=== PATIENT | female | born 1960 | race Caucasian/White ===

== ENCOUNTER 2023-04-30 12:38 | Emergency (ER) | payer OTHER, SELFPAY ==
[2023-04-30] VITALS (51 sets, daily range): BP systolic 84–125; BP diastolic 55–99; PULSE 59–89; RESP 18–20; TEMP 36.3–39.6; O2SAT 88–99
--- NOTE | 2023-04-30 15:08 | ED_ITS ---
HPI - General Adult General Chief complaint: Fever Stated complaint: Fever, nausea, diarrhea Time Seen by Provider: 04/30/23 14:49 History of Present Illness HPI narrative: intermittent fevers for the past 7 days. Temp was as high as 104.2 at times. Poor appetite. Nausea and vomiting. Patient is fatigued and feels dehydrated. Son 's family was sick 2 weeks ago with this. Spoke to telehealth doctor and was told she had a virus. At home COVID tests negative x2. Was seen at in [facility] and was told to come here for possible hydration. 63-year-old woman presenting to the emergency department with concern of fever not infrequently up to 104 intermittent over the last week. Has not been keeping up with fluids per . She has been dry heaving more than vomiting she says. She does not have any abdominal pain. Increasingly generally sore and tired. Son and his family were sick recently and he was seen received antibiotic and got better apparently in a couple of days. Diagnosis is unclear. She has done some home COVID test which were negative. Directed here for IV hydration. Over the last 2 days has had maybe 3 episodes of diarrhea a day. No particular exposures other than son as mentioned above. No environmental factors apparent. No concerning food ingestions. No dysuria frequency urgency. No cough or cold symptoms otherwise. Notes that the nausea build when the temperature goes up. I notice blood pressure on arrival is somewhat low. They note that she is a chronically low but this is maybe a little lower than usual. And then emphasize how she has not been eating lately. Travel in December to [facility] I believe. Later questioning, fevers been occurring regularly in the evenings. Though still also be present in the morning. She also recalls testing positive for hepatitis-C she thinks when screening for kidney donation. Status post nephrectomy has been clearly told to avoid ibuprofen type medications. Related Data Home Medications Medication Instructions Recorded Confirmed atorvastatin 20 mg tablet 20 mg PO QPM 04/30/23 04/30/23 Allergies Allergy/AdvReac Type Severity Reaction Status Date / Time No Known Drug Allergies Allergy Verified 04/30/23 12:03 Review of Systems Status of ROS: Reports: 6 or more systems reviewed and unremarkable except as noted in History and below Exam Narrative: Exam Narrative: Pleasant. NAD. Fully alert. Seems a little fatigued. Breathing easily. Skin is warm and dry. Extremities are well perfused lower extremities are without edema. Lungs are clear. Heart in a regular rate and rhythm without murmur rub or gallop. Abdomen is full soft nontender. Normoactive bowel sounds. No masses are appreciated. Oropharynx is sticky and without erythema. There is no cervical lymphadenopathy. Const: Vital Signs, click to edit/add: Vital Signs - 24 hr 04/30/23 12:46 04/30/23 14:56 04/30/23 14:57 Temperature 97.4 F L Pulse Rate 61 60 Pulse Rate [Pulse Oximeter] 65 Respiratory Rate 18 Blood Pressure 101/68 Blood Pressure [Ri ght Upper Arm] 84/58 L Pulse Oximetry 97 98 98 Oxygen Delivery Me thod Room Air 04/30/23 15:00 04/30/23 15:01 04/30/23 15:15 Temperature Pulse Rate 59 L 59 L 62 Pulse Rate [Pulse Oximeter] Respiratory Rate Blood Pressure 99/59 L Blood Pressure [Ri ght Upper Arm] Pulse Oximetry 97 96 99 Oxygen Delivery Me thod 04/30/23 15:30 04/30/23 15:31 04/30/23 15:45 Temperature Pulse Rate 61 60 65 Pulse Rate [Pulse Oximeter] Respiratory Rate Blood Pressure 108/80 Blood Pressure [Ri ght Upper Arm] Pulse Oximetry 97 96 95 Oxygen Delivery Me thod 04/30/23 16:02 04/30/23 16:07 04/30/23 16:15 Temperature Pulse Rate 63 63 Pulse Rate [Pulse Oximeter] Respiratory Rate Blood Pressure 103/65 Blood Pressure [Ri ght Upper Arm] Pulse Oximetry 97 94 Oxygen Delivery Me thod 04/30/23 16:30 04/30/23 16:32 04/30/23 16:33 Temperature Pulse Rate 67 68 67 Pulse Rate [Pulse Oximeter] Respiratory Rate Blood Pressure 119/61 Blood Pressure [Ri ght Upper Arm] Pulse Oximetry 97 92 96 Oxygen Delivery Me thod 04/30/23 16:43 04/30/23 16:45 04/30/23 17:01 Temperature 99.2 F 100.6 F H Pulse Rate 70 Pulse Rate [Pulse Oximeter] Respiratory Rate Blood Pressure 119/99 H Blood Pressure [Ri ght Upper Arm] Pulse Oximetry 97 Oxygen Delivery Me thod 04/30/23 17:21 04/30/23 17:30 04/30/23 17:32 Temperature Pulse Rate 73 73 70 Pulse Rate [Pulse Oximeter] Respiratory Rate Blood Pressure 125/95 H Blood Pressure [Ri ght Upper Arm] Pulse Oximetry 95 96 97 Oxygen Delivery Me thod 04/30/23 17:45 04/30/23 18:00 04/30/23 18:02 Temperature Pulse Rate 73 78 77 Pulse Rate [Pulse Oximeter] Respiratory Rate Blood Pressure 118/58 L Blood Pressure [Ri ght Upper Arm] Pulse Oximetry 95 96 96 Oxygen Delivery Me thod 04/30/23 18:15 04/30/23 18:30 04/30/23 18:32 Temperature 101.7 F H Pulse Rate 79 78 75 Pulse Rate [Pulse Oximeter] Respiratory Rate Blood Pressure 100/71 Blood Pressure [Ri ght Upper Arm] Pulse Oximetry 97 95 96 Oxygen Delivery Me thod 04/30/23 18:45 04/30/23 19:00 04/30/23 19:01 Temperature 102.6 F H Pulse Rate 83 78 82 Pulse Rate [Pulse Oximeter] Respiratory Rate Blood Pressure 111/58 L Blood Pressure [Ri ght Upper Arm] Pulse Oximetry 91 96 96 Oxygen Delivery Me thod 04/30/23 19:15 04/30/23 19:30 04/30/23 19:31 Temperature 103.2 F H Pulse Rate 89 86 86 Pulse Rate [Pulse Oximeter] Respiratory Rate Blood Pressure 103/57 L Blood Pressure [Ri ght Upper Arm] Pulse Oximetry 95 94 94 Oxygen Delivery Me thod 04/30/23 19:45 04/30/23 19:46 04/30/23 20:00 Temperature 103.2 F H Pulse Rate 83 82 Pulse Rate [Pulse Oximeter] Respiratory Rate Blood Pressure Blood Pressure [Ri ght Upper Arm] Pulse Oximetry 94 92 Oxygen Delivery Me thod 04/30/23 20:01 04/30/23 20:15 04/30/23 20:31 Temperature 100.8 F H Pulse Rate 81 77 87 Pulse Rate [Pulse Oximeter] Respiratory Rate Blood Pressure 102/58 L Blood Pressure [Ri ght Upper Arm] Pulse Oximetry 94 94 95 Oxygen Delivery Me thod 04/30/23 20:33 04/30/23 20:45 04/30/23 21:00 Temperature Pulse Rate 77 70 68 Pulse Rate [Pulse Oximeter] Respiratory Rate Blood Pressure 100/55 L Blood Pressure [Ri ght Upper Arm] Pulse Oximetry 92 92 94 Oxygen Delivery Me thod 04/30/23 21:01 04/30/23 21:15 04/30/23 21:30 Temperature Pulse Rate 69 67 68 Pulse Rate [Pulse Oximeter] Respiratory Rate Blood Pressure 97/55 L Blood Pressure [Ri ght Upper Arm] Pulse Oximetry 91 92 88 Oxygen Delivery Me thod 04/30/23 21:32 04/30/23 21:45 04/30/23 22:00 Temperature Pulse Rate 65 64 64 Pulse Rate [Pulse Oximeter] Respiratory Rate Blood Pressure 96/55 L Blood Pressure [Ri ght Upper Arm] Pulse Oximetry 88 90 93 Oxygen Delivery Me thod 04/30/23 22:01 04/30/23 22:15 04/30/23 22:27 Temperature Pulse Rate 64 63 Pulse Rate [Pulse Oximeter] 71 Respiratory Rate 20 Blood Pressure 95/60 Blood Pressure [Ri ght Upper Arm] 95/60 Pulse Oximetry 92 94 Oxygen Delivery Me thod Documenting provider has reviewed patient's vital signs: yes Course Vital Signs Vital signs: Initial Vital Signs Temperature 97.4 F L 04/30/23 12:46 Temperature Source Temporal Artery Scan 04/30/23 12:46 Pulse Rate 65 04/30/23 12:46 Pulse Rhythm Regular 04/30/23 12:46 Respiratory Rate 18 04/30/23 12:46 Blood Pressure 84/58 L 04/30/23 12:46 Blood Pressure Mean 66 L 04/30/23 12:46 Blood Pressure Position Sitting 04/30/23 12:46 Pulse Oximetry 97 04/30/23 12:46 Oxygen Delivery Method Room Air 04/30/23 12:46 Vital Signs Temperature 97.4 F L 04/30/23 12:46 Pulse Rate 65 04/30/23 12:46 Respiratory Rate 18 04/30/23 12:46 Blood Pressure 84/58 L 04/30/23 12:46 Pulse Oximetry 97 04/30/23 12:46 Oxygen Delivery Method Room Air 04/30/23 12:46 Temperature 100.8 F H 04/30/23 20:15 Pulse Rate 71 04/30/23 22:27 Respiratory Rate 20 04/30/23 22:27 Blood Pressure 95/60 04/30/23 22:27 Pulse Oximetry 94 04/30/23 22:15 Oxygen Delivery Method Room Air 04/30/23 12:46 Medical Decision Making MDM Narrative Medical decision making narrative: Presumably is dehydrated with likely viral process unspecified. Gallbladder disease or hepatitis? Will recheck for COVID and similar. Will hydrate with IV fluids. Check labs. Also give Zofran. Hopefully feels improved. Labs may guide other evaluation. Low blood pressure would have concerns about sepsis but this does not sound to be particularly unusual. Does not appear to be septic during my exam today. I am impressed with this week-long daily persistent rather high 24 hour fever. Transaminases are notably elevated. CRP as well. Sodium of 130. White count a little bit low. Temperature actually began to increase again during time in the ER. Received acetaminophen. Given reported history I think it would be prudent to check hepatitides. Unclear exposures though will also look for tick-borne illnesses. Peripheral smear for parasitic infection like malaria. did anticipate antibiotic but I am not sure at what this would be directed at this point. Ultimately was able to sleep during time in the ER. Finally did give a urine sample which did show the presence of ketones. Hydrated during stay. Lab Data Lab results reviewed: Yes I reviewed the patient's lab results Labs: Lab Results 04/30/23 04/30/23 04/30/23 Range/Units 14:50 15:40 18:23 WBC 4.39 L (4.50-11.00) K/uL RBC 4.74 (4.00-5.20) m/uL Hgb 13.4 (12.0-16.0) gm/dL Hct 40.7 (33.0-51.0) % MCV 86 (80-100) fL MCH 28 (26-34) pg MCHC 33 (32-36) gm/dL RDW Coeff of Ngoc 13.0 (11.5-15.5) % Plt Count 171 (140-440) K/uL Neut % (Auto) 73.4 H (42.0-72.0) % Lymph % (Auto) 22.6 (20-44) % Evans % (Auto) 3.0 (0.0-11.0) % Eos % (Auto) 0.5 (0.0-7.0) % Baso % (Auto) 0.0 (0.0-3.0) % Neut # (Auto) 3.20 (1.7-7.0) K/uL Lymph # (Auto) 1.00 (0.90-2.90) K/uL Evans # (Auto) 0.10 (0.00-0.90) K/UL Eos # (Auto) 0.00 (0.00-0.50) K/uL Baso # (Auto) 0.00 (0.00-0.30) K/uL Abs Immat Gran (auto) 0.00 (0.00-0.30) K/uL Imm/Tot Granulo (auto) 0.5 % Diff Slide Review Acceptable Review (Acceptable) Sodium 130 L (135-149) mmol/L Potassium 4.1 (3.6-5.1) mmol/L Chloride 97 (96-114) mmol/L Carbon Dioxide 24 (20-32) mmol/L BUN 24 (7-30) mg/dL Creatinine 1.3 (0.5-1.5) mg/dL Estimated GFR 46 ml/min Glucose 117 H (60-115) mg/dL Lactate 1.6 (0.5-1.9) mmol/L Calcium 8.2 L (8.4-10.6) mg/dL Total Bilirubin 0.5 (0.1-1.5) mg/dL Direct Bilirubin 0.2 (0.0-0.5) mg/dL AST 424 H (12-35) U/L ALT 406 H (4-35) U/L Alkaline Phosphatase 161 H (40-150) U/L C-Reactive Protein 16.3 H (0.5-1.0) mg/dL Total Protein 7.5 (6.0-8.3) g/dL Albumin 4.0 (3.3-5.0) g/dL Urine Color (Yellow) Urine Appearance (Clear) Urine pH (5.0-8.5) Ur Specific [place] (1.000-1.030) Urine Protein (Negative) Urine Glucose (UA) (Negative) Urine Ketones (Negative) Urine Blood (Negative) Urine Nitrite (Negative) Urine Bilirubin (Negative) Urine Urobilinogen (0.2-1.0) Ur Leukocyte Esterase (Negative) Urine RBC (0-2) Urine WBC (0-5) Ur Squamous Epith Cells (None-Few) Urine Bacteria (None) SARS-CoV-2 (PCR) Negative SARS-CoV-2 (Negative) Influenza Type A (PCR) Negative PCR FLU A (Negative) Influenza Type B (PCR) Negative PCR FLU B (Negative) RSV (PCR) Negative PCR RSV (Negative) Lab Acknowledgement Test Added 04/30/23 04/30/23 Range/Units 20:30 21:40 WBC (4.50-11.00) K/uL RBC (4.00-5.20) m/uL Hgb (12.0-16.0) gm/dL Hct (33.0-51.0) % MCV (80-100) fL MCH (26-34) pg MCHC (32-36) gm/dL RDW Coeff of Ngoc (11.5-15.5) % Plt Count (140-440) K/uL Neut % (Auto) (42.0-72.0) % Lymph % (Auto) (20-44) % Evans % (Auto) (0.0-11.0) % Eos % (Auto) (0.0-7.0) % Baso % (Auto) (0.0-3.0) % Neut # (Auto) (1.7-7.0) K/uL Lymph # (Auto) (0.90-2.90) K/uL Evans # (Auto) (0.00-0.90) K/UL Eos # (Auto) (0.00-0.50) K/uL Baso # (Auto) (0.00-0.30) K/uL Abs Immat Gran (auto) (0.00-0.30) K/uL Imm/Tot Granulo (auto) % Diff Slide Review (Acceptable) Sodium (135-149) mmol/L Potassium (3.6-5.1) mmol/L Chloride (96-114) mmol/L Carbon Dioxide (20-32) mmol/L BUN (7-30) mg/dL Creatinine (0.5-1.5) mg/dL Estimated GFR ml/min Glucose (60-115) mg/dL Lactate (0.5-1.9) mmol/L Calcium (8.4-10.6) mg/dL Total Bilirubin (0.1-1.5) mg/dL Direct Bilirubin (0.0-0.5) mg/dL AST (12-35) U/L ALT (4-35) U/L Alkaline Phosphatase (40-150) U/L C-Reactive Protein (0.5-1.0) mg/dL Total Protein (6.0-8.3) g/dL Albumin (3.3-5.0) g/dL Urine Color Yellow (Yellow) Urine Appearance Clear (Clear) Urine pH 5.5 (5.0-8.5) Ur Specific [place] 1.020 (1.000-1.030) Urine Protein 2+ A (Negative) Urine Glucose (UA) Negative (Negative) Urine Ketones 2+ A (Negative) Urine Blood Negative (Negative) Urine Nitrite Negative (Negative) Urine Bilirubin Negative (Negative) Urine Urobilinogen 0.2 (0.2-1.0) Ur Leukocyte Esterase Negative (Negative) Urine RBC 0-2 (0-2) Urine WBC 0-2 (0-5) Ur Squamous Epith Cells Few (None-Few) Urine Bacteria None (None) SARS-CoV-2 (PCR) (Negative) Influenza Type A (PCR) (Negative) Influenza Type B (PCR) (Negative) RSV (PCR) (Negative) Lab Acknowledgement Test Added ECG Data Attestation: I personally reviewed and interpreted this ECG as follows: (Normal sinus rhythm rate of 60) Discharge Plan Discharge Clinical Impression: Fever of unknown origin, Hyponatremia, Dehydration Patient Disposition: Home w/ Parent or Adult Condition: Improved Additional Instructions: Continue to focus on hydration. Blood cultures, viral liver panels, and tick-borne illness labs are pending here. Please call tomorrow to schedule follow-up with primary care provider to review these labs which I think would be ready in 2 days or so. I would like you to be seen later this week at least to recheck your labs, specifically your liver enzymes, to see whether these are improving or not. Return for inability to bring your fever down, intractable vomiting/unable to maintain hydration, increasing abdominal pain. Your creatinine was 1.3 today. Zofran from [facility]. Prescriptions: No Action atorvastatin 20 mg tablet 20 mg PO QPM Follow Up/Referrals: Shahla Tolentino, BERNARDOC [Physician Electrical Development Engineer] - Stand Alone Forms: [employer] Info Instructions
--- NOTE | 2023-04-30 15:22 | CRLHL7_ITS ---
For Patients: As a result of the Cures Act, medical imaging exams and procedure reports are released immediately into your electronic medical record. You may view this report before your referring provider. If you have questions, please contact your health care provider. INDICATION: One-week of intermittent fever COMPARISON: None TECHNIQUE: Single-view chest radiograph FINDINGS: TUBES AND LINES: None. HEART AND MEDIASTINUM: The heart size is normal. The mediastinal contour appears normal for patient age. LUNGS AND PLEURAL SPACES: The lungs appear normal.The pleural spaces are unremarkable. OSSEOUS STRUCTURES: Age-appropriate appearance. No acute focal finding. IMPRESSION: No evidence of active pulmonary disease. Dictated by Jerardo Garner MD @ 04/30/2023 4:16:41 PM (Electronically Signed)
[2023-04-30 15:34] LABS: Lactate* 1.6 mmol/L (0.5-1.9)
[2023-04-30 15:44] LABS: Eosinophils Percent Auto 0.5 % (0.0-7.0); Hematocrit 40.7 % (33.0-51.0); Hemoglobin* 13.4 gm/dL (12.0-16.0); Immature Granulocytes Pct Auto 0.5 %; Lymphocytes Percent Auto 22.6 % (20-44); Mean Corpuscular HGB Conc 33 gm/dL (32-36); Mean Corpuscular Hemoglobin 28 pg (26-34); Mean Corpuscular Volume 86 fL (80-100); Neutrophils Percent Auto 73.4 % (42.0-72.0); Platelet Count* 171 K/uL (140-440); Red Blood Count 4.74 m/uL (4.00-5.20); White Blood Count* 4.39 K/uL (4.50-11.00)
[2023-04-30 15:50] LABS: Chloride* 97 mmol/L (96-114); Potassium* 4.1 mmol/L (3.6-5.1); Sodium* 130 mmol/L (135-149)
[2023-04-30 15:53] LABS: Creatinine* 1.3 mg/dL (0.5-1.5); Estimated Glomerular Filt Rate 46 ml/min
[2023-04-30 15:54] LABS: Aspartate Amino Transferase* 424 U/L (12-35); Bilirubin Direct* 0.2 mg/dL (0.0-0.5); Bilirubin Total* 0.5 mg/dL (0.1-1.5); Blood Urea Nitrogen* 24 mg/dL (7-30); Calcium* 8.2 mg/dL (8.4-10.6); Carbon Dioxide* 24 mmol/L (20-32); Glucose* 117 mg/dL (60-115); Total Protein* 7.5 g/dL (6.0-8.3)
[2023-04-30 15:55] LABS: Alanine Aminotransferase* 406 U/L (4-35); Alkaline Phosphatase* 161 U/L (40-150)
[2023-04-30 16:08] LABS: C Reactive Protein* 16.3 mg/dL (0.5-1.0)
[2023-04-30 16:19] LABS: Slide Review Reflex Yes
[2023-04-30 16:21] LABS: Slide Review Acceptable Review (Acceptable)
[2023-04-30] MEDS: 0.9 % SODIUM CHLORIDE 1000 ml 1,000 ML IV (16:27)
[2023-04-30 16:30] LABS: PCR FLU A Negative PCR FLU A (Negative); PCR FLU B Negative PCR FLU B (Negative); PCR RSV Negative PCR RSV (Negative)
--- NOTE | 2023-04-30 16:33 | CRLHL7_ITS ---
For Patients: As a result of the Century Cures Act, medical imaging exams and procedure reports are released immediately into your electronic medical record. You may view this report before your referring provider. If you have questions, please contact your health care provider. INDICATION: Vomiting, elevated transaminases.. TECHNIQUE: Ultrasound abdomen limited. Sonographic images of the right upper quadrant were obtained using david-scale and color Doppler images. COMPARISON: None. FINDINGS: Liver: Normal in size and echotexture. No suspicious masses. No intrahepatic biliary dilatation. Gallbladder: No stones or sludge. Normal wall thickness. No pericholecystic fluid. Common bile duct: 5 mm. Pancreas: Unremarkable. Right kidney: Normal in size. Surgically absent. Vasculature: Proximal abdominal aorta and IVC are unremarkable. IMPRESSION: No acute intra-abdominal process identified. Status post right nephrectomy. Dictated by Juan Wu MD @ 04/30/2023 5:39:25 PM (Electronically Signed)
[2023-04-30] MEDS: ONDANSETRON 2 MG/ML inj 4 MG IVP (16:35)
[2023-04-30 16:39] LABS: SARS PCR* Negative SARS-CoV-2 (Negative)
[2023-04-30] MEDS: 0.9 % SODIUM CHLORIDE 1000 ml 1,000 ML 6000 ML IV (17:38)
[2023-04-30] MEDS: ACETAMINOPHEN 500 MG TABLET 1000 MG PO (18:37)
[2023-04-30] MEDS: METOCLOPRAMIDE HCL 10 MG in 0.9 % SODIUM CHLORIDE 100 ml 100 ML 306 MG IVPB (18:46)
--- NOTE | 2023-04-30 19:42 | ED.NURSE ---
took pt temperature to reassess after Tylenol, pt temp 103.2 notified provider, provider stated I need urine and she may need admission. no further orders at this time. I provided the pt with a bag of ice.
[2023-04-30 20:40] LABS: Appearance Urine Clear (Clear); Bilirubin Urine Negative (Negative); Blood Urine Negative (Negative); Color Urine Yellow (Yellow); Glucose Urine Negative (Negative); Ketones Urine 2+ (Negative); Leukocyte Esterase Urine Negative (Negative); Nitrite Urine Negative (Negative); Protein Urine 2+ (Negative); Urobilinogen Urine 0.2 (0.2-1.0); pH Urine 5.5 (5.0-8.5)
[2023-04-30 21:00] LABS: RBC Urine 0-2 (0-2); Squamous Epithelial Cell Urine Few (None-Few); WBC Urine 0-2 (0-5)
--- NOTE | 2023-05-02 14:28 | ED.NURSE ---
Lab called to inform that the malarial testing couldn't be completed because the wrong order was placed (needed malaria smear instead of peripheral smear). Dr. Velez notified.
[2023-05-02 18:30] LABS: Hep A Ab, IgM Negative (Negative); Hep B Core Ab, IgM Negative (Negative); Hep B Surface Antigen Negative (Negative); Hep C Ab by CIA Index 0.13 IV; Hep C Ab by CIA Interp Negative (Negative)
[2023-05-03 03:12] LABS: CMV Antibody IgG <0.20 U/mL (<=0.70); CMV Antibody IgM <8.0 AU/mL (<=29.9)
[2023-05-03 06:01] LABS: EBV Antibody-Early (D)Ag IgG >150.0 U/mL (0.0-10.9)
[2023-05-03 19:14] LABS: Anaplasma phagocyt PCR Not Detected; Babesia microti by PCR Not Detected; Babesia species by PCR Not Detected; Ehrlichia chaffeensis by PCR Not Detected; Ehrlichia ewingii/canis by PCR Not Detected; Ehrlichia muris-like by PCR Not Detected
[2023-05-04 14:03] LABS: Lyme ELISA Reflex 0.36 IV (<=0.90)
== END 2023-04-30 22:28 | disposition home or self-care (01) ==
PROVIDERS: Emergency Provider Family Medicine
DX: E87.1 Hypo-osmolality and hyponatremia (principal); E86.0 Dehydration
CPT/HCPCS: 36415; 71045; 76705; 80048; 80074; 80076; 81001; 83605; 85025; 86140; 86618; 86644; 86645; 86663; 87015; 87040; 87207; 87631; 87798; 96365; 96375; 99284; A9270; J2405; J2765; J7030